=== PATIENT | male | born 1980 ===

== ENCOUNTER 2021-01-28 10:02 | Inpatient (IN) | payer MEDICAID, SELFPAY ==
[2021-01-28 10:13] VITALS: BMI 25.8
--- NOTE | 2021-01-28 10:31 | PC.NURSE ---
Patient is a 40 year old male that presents from [facility]. Patient got into an argument with his family and the argument triggered his SI thoughts. Patient has been seeing himself kill himself over the past week. He denies that he has not been talking his medications or going to his doctor.
[2021-01-28 11:57] VITALS: BP 135/78; PULSE 88; RESP 18; TEMP 37.1; O2SAT 97
[2021-01-28 14:27] VITALS: BP 126/88; PULSE 78; RESP 18; TEMP 36.6; O2SAT 98
[2021-01-28 19:59] VITALS: BP 126/87; PULSE 75; RESP 18; TEMP 36.9; O2SAT 98
[2021-01-29 06:00] VITALS: BP 133/88; PULSE 61; RESP 18; TEMP 36.6; O2SAT 97
--- NOTE | 2021-01-29 09:03 | P.HP_ITS ---
Providers/Chief Complaint Admitting Physician: Lowell Steinberg MD Chief Complaint: SI HPI NPU History of Present Illness Ramon Alberto is a 40 year old male who presented to [facility], in [place], who endorsed suicidality, at the outside hospital. He reported that he was suicidal, that he has been more depressed than usual, over the last week, and started thinking of suicidality when he presented, which was on January. He denies significant addiction issues, and just reported he was not feeling safe. He was there for a day and a half awaiting approval at some facility, and he ultimately was transferred to [facility], and admitted to the neuropsychiatric unit for definitive treatment of those issues. He presents today reporting that he has been hospitalized at least eight times, the last time was at [facility], about a month ago; and he reports he follows up at [facility], in [place]. He reports that he is not taking any medication, but he had been taking Klonopin, reportedly from his [facility] Hospitalization, but he was unclear as to how long he had been off of the medication. He endorsed smoking about a half pack of cigarettes a day, denies alcohol use, denies kateryna mar use with any regularity, and denies any other illicit drug use. He reports that he did have a drug rehabilitation stint about five years ago. He denies ever having a DUI. He reports that he had been arguing with his family, and that was what triggered him feeling suicidal, although he denies ever having any suicide attempts, and he denies having a plan. He reports that he has a history of bipolar disorder and depression diagnoses. He has history of amphetamine and methamphetamine use, and he tested positive for amphetamines, but he currently is denying use. He reports that the significant argument was with his mom, and that the two of them had talked since then and she just wanted him to come in and make sure he was okay. He denies any other issues, at this time. PSYCHIATRIC HISTORY: As above. SUBSTANCE ABUSE HISTORY: As above. FAMILY HISTORY: He denies any mental health or addiction issues in his family. DEVELOPMENTAL HISTORY: The patient denies any issues with his mother?s or delivery of him. The patient met all developmental milestones on time. The patient denies speech therapy, learning support, emotional support, or special education classes. PSYCHOSOCIAL HISTORY: He endorses that his mother and father were together when he was born and he is the only product of that union. He has two half-sisters and a half-brother through his mom, and he reports likely fifteen half-siblings through his dad, but those he was not raised with and does not know. He reports his childhood was good. He denies any emotional, physical, or sexual abuse. He denies any prominent trauma throughout his life. He endorsed he graduated from high school and had about a year of college. He endorses being heterosexual, with the longest relationship being six years. He has never been . He has a 16 year old daughter. He has never been in the . He denies any taoist belief system. He reports his longest employment was nine years, at [employer], where he reportedly is currently employed, to some level. He lives in an apartment alone. LEGAL HISTORY: He said he has been incarcerated about ten times. The longest time was seven years, which ended in 2015, and he denies any trouble since then. MEDICAL HISTORY: Denied. [facility] NPU Home Medications Medication Instructions Recorded Confirmed Last Taken Type clonazepam [Klonopin] 0.5 mg PO TID 01/28/21 01/28/21 Unknown History Allergies Allergy/AdvReac Type Severity Reaction Status Date / Time Penicillins Allergy Unknown Verified 01/28/21 10:27 Mental Status Exam MSE Comments: This is a well-nourished, well-developed, -[place] male, in hospital scrubs, with adequate grooming and eye contact. No abnormal movements. Cooperative with exam in no acute distress. Speech was normal rate and volume. Mood described as a little better; affect slightly subdued. Thought process, organized. Thought content: patient denied any suicidal or homicidal ideation, there were no delusions reported or noted, patient denied any auditory or visual hallucinations. Attention, concentration, and memory appear intact but none were formally tested. He is alert and oriented times three. Insight and judgment are fair. Impulse control is limited. Vitals/I&O/Wt Last Vital Signs Temp 97.9 F 01/29/21 06:00 Pulse 61 01/29/21 06:00 Resp 18 01/29/21 06:00 BP 133/88 01/29/21 06:00 Pulse Ox 97 01/29/21 06:00 Weight last 48 hrs Weight 79.379 kg A&P Assessment and plan (1) Parent-child relational problem: Status: Acute (2) Anxiety disorder: Status: Acute (3) Methamphetamine use disorder, severe: Status: Acute (4) Suicidal ideations: Status: Acute Additional A&P Information This is a 40 year old, -[place] male, with a long history of mental health and addiction issues, who presents denying current addiction issues but having a positive UDS, who was in a conflict with his mother, for unknown reason, who presents reporting that he feels better and is currently not lobbying for any treatment or interventions, and seems ambivalent about any medication interventions or drug and alcohol treatment to follow this. 1. Continue current medication. 2. Encourage individual, group, and milieu therapy. 3. Continue q-15 minute checks for safety. 4. Encourage sober living treatment after discharge at the highest level of care to which he is willing to commit. Involuntary Hold Information 96 Hour Hold: 96 Hour Involuntary Admission: No Attestations NPU Medical Necessity Statement*: Inpatient hospitalization is medically necessary and the clinically appropriate intervention, at this time. We will monitor medications and make changes as indicated. Patient will be in the hospital for over two midnights. Likely length of stay is 2-4 days. Coding Level of Care Code Acute [employer] [facility] Diagnoses Parent-child relational problem Z62.820 Anxiety disorder F41.9 Methamphetamine use disorder, severe F15.20 Suicidal ideations R45.851
[2021-01-29 13:50] VITALS: BP 126/86; PULSE 65; RESP 18; TEMP 36.8; O2SAT 99
[2021-01-29 21:19] VITALS: BP 109/77; PULSE 61; RESP 17; TEMP 36.6; O2SAT 93
[2021-01-30 06:00] VITALS: BP 116/78; PULSE 66; RESP 16; TEMP 36.7; O2SAT 95; BMI 26.0
--- NOTE | 2021-01-30 12:00 | PM.NDC ---
Diagnoses at Discharge Discharge Diagnosis (1) Parent-child relational problem: Status: Acute (2) Anxiety disorder: Status: Acute (3) Methamphetamine use disorder, severe: Status: Acute (4) Suicidal ideations: Status: Resolved (5) Malingering: Status: Acute Reason for Visit Reason for Visit: SI Brief History: History of Present Illness Ramon Alberto is a 40 year old male who presented to [facility], in [place], who endorsed suicidality, at the outside hospital. He reported that he was suicidal, that he has been more depressed than usual, over the last week, and started thinking of suicidality when he presented, which was on January. He denies significant addiction issues, and just reported he was not feeling safe. He was there for a day and a half awaiting approval at some facility, and he ultimately was transferred to [facility], and admitted to the neuropsychiatric unit for definitive treatment of those issues. He presents today reporting that he has been hospitalized at least eight times, the last time was at [facility], about a month ago; and he reports he follows up at [facility] in [place]. He reports that he is not taking any medication, but he had been taking Klonopin, reportedly from his [facility] Hospitalization, but he was unclear as to how long he had been off of the medication. He endorsed smoking about a half pack of cigarettes a day, denies alcohol use, denies marijuana use with any regularity, and denies any other illicit drug use. He reports that he did have a drug rehabilitation stint about five years ago. He denies ever having a DUI. He reports that he had been arguing with his family, and that was what triggered him feeling suicidal, although he denies ever having any suicide attempts, and he denies having a plan. He reports that he has a history of bipolar disorder and depression diagnoses. He has history of amphetamine and methamphetamine use, and he tested positive for amphetamines, but he currently is denying use. He reports that the significant argument was with his mom, and that the two of them had talked since then and she just wanted him to come in and make sure he was okay. He denies any other issues, at this time. PSYCHIATRIC HISTORY: As above. SUBSTANCE ABUSE HISTORY: As above. FAMILY HISTORY: He denies any mental health or addiction issues in his family. DEVELOPMENTAL HISTORY: The patient denies any issues with his mother?s or delivery of him. The patient met all developmental milestones on time. The patient denies speech therapy, learning support, emotional support, or special education classes. PSYCHOSOCIAL HISTORY: He endorses that his mother and father were together when he was born and he is the only product of that union. He has two half-sisters and a half-brother through his mom, and he reports likely fifteen half-siblings through his dad, but those he was not raised with and does not know. He reports his childhood was good. He denies any emotional, physical, or sexual abuse. He denies any prominent trauma throughout his life. He endorsed he graduated from high school and had about a year of college. He endorses being heterosexual, with the longest relationship being six years. He has never been . He has a 16 year old daughter. He has never been in the . He denies any hinduism belief system. He reports his longest employment was nine years, at [employer], where he reportedly is currently employed, to some level. He lives in an apartment alone. LEGAL HISTORY: He said he has been incarcerated about ten times. The longest time was seven years, which ended in 2016, and he denies any trouble since then. MEDICAL HISTORY: Denied. Hospital Course Hospital Course He quickly acclimated to the individual, group and milieu therapies provided. He denied need for any medication interventions except for testing to the fact that he was taking Klonopin but I know you not to give me that. He was fairly quickly completely well and seemed more to have been in the spot with his mother where he had no place to go then to be seriously suicidal at any point he was seen by the treatment team. He endorsed readiness to discharge almost immediately. He showed modest improvement and was able to contract for safety prior to discharge. At the outside hospital, patient had routine laboratory studies which were within normal limits except for few outliers. Additionally there was a general medical evaluation which was also within normal limits and revealed no new acute processes. Discharge Summary: At the time of discharge, he denied psychosis or lethality. Mood and anxiety were well managed. Patient endorsed a plan to avoid all drugs of abuse and follow-up with the aftercare recommendations of the treatment team. Patient was evaluated and deemed to be absent credible lethality, and had achieved the maximum benefit from an inpatient hospitalization, so was discharged. Involuntary Hold Information 96 Hour Hold: 96 Hour Involuntary Admission: No Mental Status Exam MSE Comments: This is a well-nourished, well-developed, -[place] male, in hospital scrubs, with adequate grooming and eye contact. No abnormal movements. Cooperative with exam in no acute distress. Speech was normal rate and volume. Mood described as pretty good; affect congruent. Thought process, organized. Thought content: patient denied any suicidal or homicidal ideation, there were no delusions reported or noted, patient denied any auditory or visual hallucinations. Attention, concentration, and memory appear intact but none were formally tested. He is alert and oriented times three. Insight and judgment are fair. Impulse control is limited. Discharge Data Vitals: Last Vital Signs Temp 98.1 F 01/30/21 06:00 Pulse 66 01/30/21 06:00 Resp 16 01/30/21 06:00 BP 116/78 01/30/21 06:00 Pulse Ox 95 01/30/21 06:00 Discharge Plan Discharge Patient Disposition: Home Condition: Stable Prescriptions: Continued Klonopin 0.5 mg tablet 0.5 mg PO TID RF: 0 Discharge Orders: Discharge Order (Routine); Ordered 01/30/21 Ordered By: Lowell Steinberg Referrals: [facility] [Other] (Walk-in Mon-Fri 7:30am to 3:30pm. You can call but it's easier to just walk in.) Discharge Diet: Regular Discharge Activity: Resume usual activity Patient Instructions: Opioid Safety Discharge Attestations NPU Time Spent in Discharge Care*: less than 30 min Specific Discharge Activities: Specific discharge activities: educating patient, discussing with housing case manager/social workers/dc planners, documenting/other paperwork and evaluating patient/reviewing data Coding Level of Care Code Acute [facility] DC note Diagnoses Parent-child relational problem Z62.820 Anxiety disorder F41.9 Methamphetamine use disorder, severe F15.20 Suicidal ideations R45.851 Malingering Z76.5
[2021-01-30 12:58] VITALS: BP 116/78; PULSE 66; RESP 16; TEMP 36.7; O2SAT 95
[2021-01-30 13:50] VITALS: BP 112/70; PULSE 78; RESP 16; TEMP 36.7; O2SAT 97
== END 2021-01-30 14:11 | disposition home or self-care (01) | DRG 880 ==
PROVIDERS: Admitting Provider Psychiatry & Neurology Psychiatry; Visit Provider Psychiatry & Neurology Psychiatry
DX: F41.9 Anxiety disorder, unspecified (principal); R45.851 Suicidal ideations; F17.210 Nicotine dependence, cigarettes, uncomplicated; F15.90 Other stimulant use, unspecified, uncomplicated; Z63.8 Other specified problems related to primary support group; Z62.820 Parent-biological child conflict